=== PATIENT | female | born 1980 | race Caucasian/White ===

== ENCOUNTER 2022-07-14 11:37 | Outpatient (CLI) | payer OTHER | END 2022-07-14 11:46 | disposition home or self-care (01) | LOC: MAMO-SONO 11:37 | PROVIDERS: ATTEND Obstetrics & Gynecology | DX: N60.11 Diffuse cystic mastopathy of right breast (principal); N60.12 Diffuse cystic mastopathy of left breast ==

== ENCOUNTER → 2023-02-18 | Outpatient (CLI) | payer OTHER | END | disposition home or self-care (01) | LOC: SONOGRAMA 11:55 | PROVIDERS: ATTEND Obstetrics & Gynecology | DX: N60.19 Diffuse cystic mastopathy of unspecified breast (principal); N60.09 Solitary cyst of unspecified breast ==

== ENCOUNTER 2023-10-06 08:20 | Outpatient (CLI) | payer OTHER | END 2023-10-06 08:29 | disposition home or self-care (01) | LOC: MAMO-SONO 08:20 | DX: N60.11 Diffuse cystic mastopathy of right breast (principal); N60.12 Diffuse cystic mastopathy of left breast ==

== ENCOUNTER 2025-01-25 09:04 | Outpatient (CLI) | payer OTHER | END 2025-01-25 09:14 | disposition home or self-care (01) | LOC: MAMO-SONO 09:04 | PROVIDERS: ATTEND Specialist | DX: N60.11 Diffuse cystic mastopathy of right breast (principal); N60.12 Diffuse cystic mastopathy of left breast ==